=== PATIENT | female | born 1945 | race African-American/Black ===

== ENCOUNTER 2021-03-18 08:47 | Inpatient (IN) | payer OTHER, BC ==
[~2021-03-18] VITALS: Ht 154.9 cm; Wt 95.3 kg
[~2021-03-18 08:47] MED LIST: ALLOPURINOL 10100 M1 PO; CHLORTHALIDONE25 MG PO; HUMALOG MI100 UNIT/3 SQ; HYDROCODON-ACE1 EAC5 PO; KLOR-CON 1010 MEQ PO; METFORMIN HCL500 MG PO; NORVASC2.5 MG PO; TOPROL XL50 MG; TRAMADOL 50 MG50 MG PO; VASOTEC5 MG PO; VOLTAREN GEL 1100 G1 TOP; ZANAFLEX4 M1 PO
[2021-03-18 08:58] VITALS: BP 141/70
[2021-03-18 09:25] LABS: ABSOLUTE NEUTROPHILS 7.5 thou/uL (1.4-8.2); BASOPHILS 0.9 % (0.0-2.0); HEMATOCRIT 38.4 % (37.0-47.0); HEMOGLOBIN 13.2 gm/dL (12.0-15.0); LYMPHOCYTES 19.9 % (24.0-44.0); MCH 32.2 pg (26.0-34.0); MCHC 34.3 g/dL (28.0-37.0); MCV 93.7 fL (80.0-100.0); MONOCYTES 4.5 % (1.0-8.0); PLATELET COUNT 324 thou/uL (150-400); POLYS 72.7 % (36.0-66.0); WBC 10.3 thou/uL (4.0-11.0)
[2021-03-18 09:54] LABS: CALCIUM 9.6 mg/dL (8.5-10.1); CREATININE 2.1 mg/dL (0.6-1.0)
--- NOTE | 2021-03-18 15:06 | 2DMMODE ---
[facility] [address] [place] [address] 2 D/M-MODE ECHOCARDIOGRAM Name: TERESITA MYERS Allyson Room #: 170-10 ADM IN M.R.#: [id number] Admission: 03/18/21 Attend Phys: Gerardo Ornelas Discharge: Date of : 47 Report #: [id number] THIS REPORT FOR: cc: [facility] - Clinic physician unknown [facility] - Clinic physician unknown Edward Blue MD ~ APPROVED REPORT Study performed: 03/18/2021 13:50:24 EXAM: Comprehensive 2D, Doppler, and color-flow Echocardiogram Patient Location: ER Room #: 10 Status: routine BSA: 1.93 HR: 79 bpm BP: 118/57 mmHg Rhythm: NSR Other Information Study Quality: Adequate Technically limited study due to body habitus. Indications Dyspnea Chest Pain Hypertension/HDD 2D Dimensions IVSd: 10.26 (7-11mm) LVOT Diam: 19.94 (18-24mm) LVDd: 45.62 mm PWd: 8.84 (7-11mm) Ascending Ao: 28.18 (22-36mm) LVDs: 29.53 (25-40mm) Left Atrium: 27.41 (27-40mm) Aortic Root: 28.68 mm Volumes Left Atrial Volume (Systole) Single Plane 4CH: 26.86 mL Single Plane 2CH: 32.44 mL Biplane LA Volume: 31.00 mL LA ESV Index: 16.00 mL/m2 Aortic Valve AoV Peak Corey.: 1.35 m/s AO Peak Gr.: 7.73 mmHg LVOT Max P.63 mmHg [facility] [address] [place] [address] 2 D/M-MODE ECHOCARDIOGRAM Name: TERESITA MYERS Room #: 170-10 [facility] IN ..#: [id number] Admission: 03/18/21 Attend Phys: Gerardo Washington Discharge: Date of : 47 Report #: [id number] LVOT Max V: 0.81 m/s [place] Vmax: 1.88 cm2 Mitral Valve E/A Ratio: 1.0 MV Decel. Time: 158.44 ms MV E Max Corey.: 0.45 m/s MV A Corey.: 0.47 m/s MV PHT: 45.95 ms IVRT: 50.75 ms Pulmonary Valve PV Peak Corey.: 1.14 m/s PV Peak Gr.: 5.21 mmHg TX End Vmax: 0.93 m/s Pulmonary Vein P Vein S: 0.50 m/s P Vein A: 0.38 m/s P Vein D: 0.35 m/s P Vein A Dur.: 110.7 msec P Vein S/D Ratio: 1.43 Tricuspid Valve TR Peak Corey.: 2.71 m/s RAP Estimate: 7.00 mmHg TR Peak Gr.: 29.27 mmHg RVSP: 36.00 mmHg Left Ventricle The left ventricle is normal size. There is normal LV segmental wall motion. There is normal left ventricular wall thickness. Left ventricular systolic function is normal. The left ventricular ejection fraction is within the normal range. LVEF is 60-65%. Mild diastolic dysfunction is present (impaired relaxation pattern). Right Ventricle The right ventricle is normal size. The right ventricular systolic function is normal. Atria The left atrium size is normal. The right atrium size is normal. Aortic Valve Aortic valve is trileaflet. No aortic regurgitation is present. There is no aortic valvular stenosis. Mitral Valve The mitral valve is normal in structure. Trace to mild mitral [facility] [address] [address] 2 D/M-MODE ECHOCARDIOGRAM Name: TERESITA MYERS Room #: 170-10 ADM IN [facility].#: [id number] Admission: 03/18/21 Attend Phys: Gerardo [place] Discharge: Date of : 47 Report #: [id number] regurgitation. No evidence of mitral valve stenosis. Tricuspid Valve The tricuspid valve is normal in structure. Mild tricuspid regurgitation. PAP 37 mmHg Pulmonic Valve The pulmonary valve is normal in structure. There is no pulmonic valvular regurgitation. Great Vessels The aortic root is normal in size. IVC is not well visualized. Pericardium There is no pericardial effusion. <Conclusion> The left ventricle is normal size. There is normal left ventricular wall thickness. Left ventricular systolic function is normal. Mild diastolic dysfunction is present (impaired relaxation pattern). The right ventricle is normal size. The left atrium size is normal. Aortic valve is trileaflet. Trace to mild mitral regurgitation. Mild tricuspid regurgitation. <ELECTRONICALLY SIGNED> By: Edward Blue MD 03/18/21 1506 [id number] 1506 Edward Blue MD /INF
[2021-03-18 23:13] VITALS: BP 147/80
[2021-03-19 03:06] LABS: GLYCOHEMOGLOBIN (HGB A1C) 6.6 % (4.8-5.6)
[2021-03-19 04:09] VITALS: BP 129/79
--- NOTE | 2021-03-19 06:59 | NUR ---
PT DENIES ANY MORE CHEST PAIN. SHE STATES HER BACK PAIN IS BETTER THIS MORNING AFTER TAKING HYDROCODONE AND SLEEPING WELL DURING THE NIGHT. WILL GIVE REPORT TO ONCOMING NURSE.
--- NOTE | 2021-03-19 07:30 | EKG ---
[place] [address] [address] [facility] [place] [address] ELECTROCARDIOGRAM REPORT Name: TERESITA MYERS Room #: 170-17 ADM IN M.R.#: [id number] Admission: 03/18/21 Attend Phys: Gerardo Ornelas Discharge: Date of : 47 Report #: [id number] [facility] ED Test Date: 2021-03-18 Test Time: 08:45:18 Pat Name: TERESITA MYERS Department: Room: 170 Gender: F Electrician'S Helper: . : 1945 Requested By: Horace Cool Order Number: [id number] MD: Osmel Arroyo Measurements Intervals [place] Rate: 70 P: 43 SC: 167 QRS: -27 QRSD: 94 T: 43 QT: 387 QTc: 418 Interpretive Statements Sinus rhythm with sinus arrhythmia Poor R wave progression Nonspecific ST and T wave abnormality No previous ECG available for comparison Electronically Signed On 03-19-2021 7:30:12 [employer] SOFTWARE ENGINE[employer] by Osmel Arroyo [email or web address] <ELECTRONICALLY SIGNED> By: Osmel Arroyo MD, [facility] 03/19/21 0730 [id number] [id number] Osmel Arroyo MD, FACC /EPI
[2021-03-19 08:48] LABS: CALCIUM 8.9 mg/dL (8.5-10.1)
[2021-03-19 08:51] LABS: CREATININE 1.6 mg/dL (0.6-1.0); POTASSIUM 4.3 mmol/L (3.5-5.1)
[2021-03-19 09:02] LABS: ALBUMIN 3.2 g/dL (3.4-5.0); PHOSPHORUS 3.7 mg/dL (2.6-4.7)
[2021-03-19 09:28] LABS: CHOLESTEROL 194 mg/dL (<200); HDL CHOLESTEROL 47 mg/dL (>40); LDL CHOLESTEROL 134 mg/dL (<100); TC:HDL 4.1 Ratio (Not establshd); TRIGLYCERIDE 67 mg/dL (<150); VLDL 13 mg/dL (<40)
[2021-03-19 11:18] VITALS: BP 129/79
[2021-03-19 15:00] VITALS: BP 129/78
[2021-03-19 16:16] VITALS: BP 129/78
--- NOTE | 2021-03-19 16:36 | NUR ---
DISCHARGE ORDERS WRITTEN ON PT THIS EVENING. DISCHARGE INSTRUCTIONS GIVEN TO PT AND SHE VERBALIZED UNDERSTANDING. PT WAS PICKED UP BY HER DAUGHTER.
[2021-03-19 16:37] VITALS: BP 129/85
== END 2021-03-19 16:34 | disposition home or self-care (01) | DRG 303 ==
LOC: ER 08:47 → EROBS 13:01
PROVIDERS: Emergency Medicine; Nurse Practitioner; ADMIT Hospitalist; ATTEND Hospitalist
DX: I25.110 Atherosclerotic heart disease of native coronary artery with unstable angina pectoris (principal); M47.9 Spondylosis, unspecified; E78.5 Hyperlipidemia, unspecified; N18.9 Chronic kidney disease, unspecified; R73.03 Prediabetes; I12.9 Hypertensive chronic kidney disease with stage 1 through stage 4 chronic kidney disease, or unspecified chronic kidney disease; R01.1 Cardiac murmur, unspecified; Z20.822 Contact with and (suspected) exposure to COVID-19; Z90.710 Acquired absence of both cervix and uterus; Z82.49 Family history of ischemic heart disease and other diseases of the circulatory system; Z79.82 Long term (current) use of aspirin; Z79.899 Other long term (current) drug therapy

== ENCOUNTER → 2021-03-21 | Outpatient (CLI) | payer OTHER, BC | LOC: SJCVCIMAG 08:30 | PROVIDERS: ATTEND Internal Medicine Cardiovascular Disease | DX: R07.9 Chest pain, unspecified (principal); I12.9 Hypertensive chronic kidney disease with stage 1 through stage 4 chronic kidney disease, or unspecified chronic kidney disease; N18.9 Chronic kidney disease, unspecified; R42 Dizziness and giddiness; E78.5 Hyperlipidemia, unspecified; I10 Essential (primary) hypertension; I25.10 Atherosclerotic heart disease of native coronary artery without angina pectoris; E78.00 Pure hypercholesterolemia, unspecified; Z79.82 Long term (current) use of aspirin; Z79.899 Other long term (current) drug therapy ==